=== PATIENT | male | born 1955 | race Caucasian/White ===

== ENCOUNTER 2021-08-21 12:37 | Emergency (ER) | payer SELFPAY ==
[~2021-08-21] VITALS: Ht 175.3 cm; Wt 94.5 kg
[2021-08-21] MEDS ORDERED: MEDROL 4MG DOSPA4 MG PO (13:13)
[2021-08-21] MEDS ORDERED: NORCO 325 MG-51 TAB PO (13:15)
[2021-08-21 13:33] VITALS: BP 154/75; PULSE 67; TEMP 98
== END 2021-08-21 13:33 | disposition home or self-care (01) ==
LOC: COL.ER 12:37
DX: M25.562 Pain in left knee (principal); Z28.311 Partially vaccinated for COVID-19; W10.8XXA Fall (on) (from) other stairs and steps, initial encounter; Y92.59 Other trade areas as the place of occurrence of the external cause; Y99.0 Civilian activity done for income or pay